=== PATIENT | male | born 1985 | race Two or more races ===

== ENCOUNTER 2025-03-16 09:03 | Emergency (ER) | payer SELFPAY ==
[2025-03-16 09:04] VITALS: BMI 25.7
[2025-03-16 09:40] VITALS: BP 133/74; PULSE 68; RESP 16; TEMP 36.9; O2SAT 98
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
== END 2025-03-16 12:40 | disposition home or self-care (01) ==
PROVIDERS: Emergency Provider Emergency Medicine; PCP Family Medicine
DX: S16.1XXA Strain of muscle, fascia and tendon at neck level, initial encounter (principal); S49.92XA Unspecified injury of left shoulder and upper arm, initial encounter; V89.2XXA Person injured in unspecified motor-vehicle accident, traffic, initial encounter; Y92.410 Unspecified street and highway as the place of occurrence of the external cause
CPT/HCPCS: 72040; 73030; 99283